=== PATIENT | female | born 1960 | race African-American/Black ===

== ENCOUNTER 2016-09-30 09:43 | Emergency (ER) | payer MEDICAID ==
[~2016-09-30] VITALS: Ht 162.6 cm; Wt 85.0 kg
[~2016-09-30 09:43] MED LIST: CIPR-213 PO; NAPR-681 PO; TRAM50TA3 PO
[2016-09-30 09:47] VITALS: BP 169/97
[2016-09-30] MEDS ORDERED: LIDOCAINE HCL 1% 20ML VIAL (Pyxis) INJ MC ONE (12:00)
[2016-09-30] MEDS ORDERED: BACITRACIN ZINC OINT UDPKT TOP ONE (12:00)
[2016-09-30] MEDS ORDERED: ACETAMINOPHEN 325MG TABLET PO ONE (12:15)
== END 2016-09-30 14:10 | disposition home or self-care (01) ==
LOC: ER 11:38
DX: S51.811A Laceration without foreign body of right forearm, initial encounter (principal); F17.200 Nicotine dependence, unspecified, uncomplicated; F12.10 Cannabis abuse, uncomplicated; X58.XXXA Exposure to other specified factors, initial encounter; Y93.89 Activity, other specified; Y99.8 Other external cause status; Y92.89 Other specified places as the place of occurrence of the external cause
CPT/HCPCS: 12002; 99283; J3490; Z7610